=== PATIENT | female | born 1975 | race Two or more races ===

== ENCOUNTER 2022-11-18 19:50 | Emergency (ER) | payer OTHER ==
[~2022-11-18] VITALS: Ht 160 cm; Wt 59.0 kg
== END 2022-11-19 02:31 | disposition home or self-care (01) ==
LOC: ER 19:50
DX: R10.9 Unspecified abdominal pain (principal); Z88.0 Allergy status to penicillin

== ENCOUNTER 2022-11-21 05:45 | Day surgery (SDC) | payer OTHER ==
[~2022-11-21] VITALS: Ht 157.5 cm; Wt 61.2 kg
[2022-11-21] MEDS ORDERED: NAPR500T14 PO (13:05)
[2022-11-21] MEDS ORDERED: MORGIDOX100 MG PO (13:05)
== END 2022-11-21 16:40 | disposition home or self-care (01) ==
LOC: CIR.AMB 05:45
PROVIDERS: ATTEND Obstetrics & Gynecology
DX: N92.1 Excessive and frequent menstruation with irregular cycle (principal); N84.0 Polyp of corpus uteri; N84.1 Polyp of cervix uteri; D25.0 Submucous leiomyoma of uterus; Z88.0 Allergy status to penicillin; Z20.822 Contact with and (suspected) exposure to COVID-19

== ENCOUNTER 2022-12-05 20:30 | Emergency (ER) | payer OTHER ==
[~2022-12-05] VITALS: Ht 160 cm; Wt 60.8 kg
[~2022-12-05 20:30] MED LIST: MORGIDOX100 MG PO; NAPR500T14 PO
== END 2022-12-05 23:46 | disposition home or self-care (01) ==
LOC: ER 20:30
DX: A90 Dengue fever [classical dengue] (principal); Z88.0 Allergy status to penicillin; Z20.822 Contact with and (suspected) exposure to COVID-19

== ENCOUNTER 2022-12-07 10:42 | Emergency (ER) | payer OTHER ==
[~2022-12-07] VITALS: Ht 157.5 cm; Wt 60.8 kg
== END 2022-12-07 15:38 | disposition home or self-care (01) ==
LOC: ER 10:42
DX: A90 Dengue fever [classical dengue] (principal); B34.9 Viral infection, unspecified; Z88.0 Allergy status to penicillin

== ENCOUNTER → 2023-02-03 | Outpatient (CLI) | payer OTHER | END | disposition home or self-care (01) | LOC: SONOGRAMA 10:56 | PROVIDERS: ATTEND Pathology Anatomic Pathology & Clinical Pathology | DX: D44.0 Neoplasm of uncertain behavior of thyroid gland (principal); E07.9 Disorder of thyroid, unspecified; E04.2 Nontoxic multinodular goiter ==

== ENCOUNTER 2023-03-28 19:18 | Emergency (ER) | payer OTHER ==
[~2023-03-28] VITALS: Ht 160 cm; Wt 58.1 kg
== END 2023-03-28 22:00 | disposition home or self-care (01) ==
LOC: ER 19:18
DX: N83.292 Other ovarian cyst, left side (principal); N39.0 Urinary tract infection, site not specified; R10.2 Pelvic and perineal pain; Z88.0 Allergy status to penicillin

== ENCOUNTER 2023-07-03 10:05 | Outpatient (CLI) | payer OTHER | END 2023-07-03 10:13 | disposition home or self-care (01) | LOC: NUCLEAR 10:05 | PROVIDERS: ATTEND Internal Medicine Sports Medicine | DX: C73 Malignant neoplasm of thyroid gland (principal); E03.8 Other specified hypothyroidism; E89.0 Postprocedural hypothyroidism ==

== ENCOUNTER 2023-07-07 12:47 | Outpatient (CLI) | payer OTHER | END 2023-07-07 12:50 | disposition home or self-care (01) | LOC: NUCLEAR 12:47 | PROVIDERS: ATTEND Internal Medicine Sports Medicine | DX: C73 Malignant neoplasm of thyroid gland (principal); E03.8 Other specified hypothyroidism; E89.0 Postprocedural hypothyroidism ==

== ENCOUNTER 2024-02-06 16:25 | Emergency (ER) | payer OTHER ==
[~2024-02-06] VITALS: Ht 160 cm; Wt 59.4 kg
[2024-02-06] MEDS ORDERED: 0.9 % SODIUM CHLORIDE 500 ML IV SCH (17:30)
[2024-02-06] MEDS ORDERED: FAMOTIDINE/PF 20 MG/2 ML VIAL IV ONE (17:30)
[2024-02-06 18:23] LABS: HEMATOCRIT 39.9 % (36.0-45.00); HEMOGLOBIN 13.5 g/dL (12.0-15.00); MEAN CORPUSCULAR HEMOGLOBIN 30.5 pg (27.00-32.0); MEAN CORPUSCULAR HGB CONC 33.8 g/dl (32.0-36.0); PLATELET COUNT 203 K/uL (150-450); RED BLOOD COUNT 4.43 M/uL (4.00-6.00); RED CELL DISTRIBUTION WIDTH 13.2 % (11.5-14.5)
[2024-02-06 18:43] LABS: CALCIUM 9.3 mg/dL (8.5-10.1); CREATININE SERUM 0.78 mg/dL (0.55-1.02); GFR 79.51; POTASSIUM 3.65 mEq/L (3.5-5.1)
[2024-02-06 19:41] LABS: PH,URINE 5.5 (5.0-8.0); URINE APPEARANCE Cloudy; URINE BILIRRUBIN Negative (NEGATIVE); URINE BLOOD Trace; URINE COLOR Yellow; URINE GLUCOSE Negative (NEGATIVE); URINE LEUKOCYTE Moderate; URINE NITRATE Negative; URINE PROTEIN Negative (NEGATIVE); URINE UROBILINOGEN 0.2 E.U./dl
[2024-02-06 19:44] LABS: URINE BACTERIA 3062.8 uL (0.0-1933); URINE EPITHELIAL CELLS 59.2 uL (0.0-38.8); URINE RBC 21.2 uL (0.0-20.8); URINE WBC 223.7 uL (0.0-23.2)
[2024-02-06] MEDS ORDERED: ZOFRAN8 MG PO (20:25)
[2024-02-06] MEDS ORDERED: CIPRO500 MG PO (20:25)
[2024-02-06] MEDS ORDERED: PEPCID AC20 MG PO (20:25)
== END 2024-02-06 20:34 | disposition home or self-care (01) ==
LOC: ER 16:25
PROVIDERS: General Practice
DX: N39.0 Urinary tract infection, site not specified (principal); R10.13 Epigastric pain; Z88.0 Allergy status to penicillin; E03.9 Hypothyroidism, unspecified

== ENCOUNTER 2024-06-13 09:43 | Emergency (ER) | payer OTHER ==
[~2024-06-13] VITALS: Ht 160 cm; Wt 59.0 kg
[~2024-06-13 09:43] MED LIST changes: +CIPRO500 MG PO; +PEPCID AC20 MG PO; +ZOFRAN8 MG PO
[2024-06-13] MEDS ORDERED: SYNTHROID137 MCG (09:55)
[2024-06-13] MEDS ORDERED: KETOROLAC TROMETHAMINE 30 MG VIAL ONE (10:44)
[2024-06-13] MEDS ORDERED: VANCOMYCIN HCL 1,000 MG VIAL ONE (10:44)
[2024-06-13] MEDS ORDERED: KETOROLAC TROMETHAMINE 15 MG VIAL IV ONE (10:45)
[2024-06-13] MEDS ORDERED: VANCOMYCIN HCL 1,000 MG VIAL IV ONE (10:45)
[2024-06-13 10:57] LABS: HEMATOCRIT 38.8 % (36.0-45.00); HEMOGLOBIN 13.2 g/dL (12.0-15.00); MEAN CELL VOLUME 90.1 fL (80.00-100.00); MEAN CORPUSCULAR HEMOGLOBIN 30.7 pg (27.00-32.0); MEAN CORPUSCULAR HGB CONC 34.1 g/dl (32.0-36.0); PLATELET COUNT 196 K/uL (150-450); RED CELL DISTRIBUTION WIDTH 13.3 % (11.5-14.5)
[2024-06-13] MEDS ORDERED: 0.9 % SODIUM CHLORIDE 500 ML IV ONE (13:15)
== END 2024-06-13 14:10 | disposition home or self-care (01) ==
LOC: ER 09:44
PROVIDERS: General Practice
DX: N61.0 Mastitis without abscess (principal); Z88.0 Allergy status to penicillin; Z88.2 Allergy status to sulfonamides
CPT/HCPCS: 36415; 96365; 99283; J1885; J3370; J7042

== ENCOUNTER 2024-07-02 10:44 | Outpatient (CLI) | payer OTHER ==
[~2024-07-02 10:44] MED LIST changes: +SYNTHROID137 MCG
== END 2024-07-02 10:45 | disposition home or self-care (01) ==
LOC: NUCLEAR 10:44
PROVIDERS: ATTEND Internal Medicine Sports Medicine
DX: C73 Malignant neoplasm of thyroid gland (principal); E89.0 Postprocedural hypothyroidism

== ENCOUNTER 2024-09-14 12:36 | Emergency (ER) | payer OTHER ==
[~2024-09-14] VITALS: Ht 160 cm; Wt 59.0 kg
[2024-09-14] MEDS ORDERED: CEFTRIAXONE SODIUM 1,000 MG VIAL IM STA (14:06)
== END 2024-09-14 14:53 | disposition home or self-care (01) ==
LOC: ER 12:38
DX: H10.9 Unspecified conjunctivitis (principal); J02.9 Acute pharyngitis, unspecified; R05.9 Cough, unspecified; Z88.0 Allergy status to penicillin; Z88.2 Allergy status to sulfonamides

== ENCOUNTER 2025-01-11 14:23 | Emergency (ER) | payer OTHER ==
[~2025-01-11] VITALS: Ht 160 cm; Wt 59.0 kg
== END 2025-01-11 15:29 | disposition home or self-care (01) ==
LOC: ER 14:26
DX: N39.0 Urinary tract infection, site not specified (principal); E03.8 Other specified hypothyroidism; Z88.0 Allergy status to penicillin; Z88.2 Allergy status to sulfonamides